=== PATIENT | female | born 2000 | race Caucasian/White ===

== ENCOUNTER 2024-01-04 16:39 | Inpatient (IN) | payer SELFPAY ==
[2024-01-04] MEDS ORDERED: Propofol 1,000 MG/100 ML VIAL IV ONE (16:50)
[2024-01-04] MEDS ORDERED: Fentanyl CADD 100 ML IV SCH ×2 (17:00→19:30)
[2024-01-04 17:02] LABS: Analyzer IN Cardio ER; Base Excess (BEa) -12.4 mEq/L (-2.0 to +3.0); CO2 Tension 36.5 mmHg (35.0-45.0); Calcium, Ionized (arterial) 1.03 mmol/L (1.12-1.30); Carboxyhemoglobin (COHb) 0.3 gm% (0.0-3.0); Hematocrit-ABG 36 % (36.0-47.0); Hemoglobin (Hb) 12.3 g/dL (12.0-16.0); pH, Arterial 7.216 (7.35-7.45)
[2024-01-04 17:07] LABS: Actual Bicarbonate (HCO3a) 14.5 mEq/L (22-28); Puncture Site Right Brachial art
[2024-01-04 17:08] LABS: ALV-art Gradient 34.875 mmHg (0-20)
[2024-01-04 17:11] LABS: #Basophils 0.12 10x3/uL (0.0-0.2); %Basophils 0.6 % (0.0-1.0); %Eosinophils 3.4 % (0.0-10.0); %Lymphocytes 44.3 % (21.0-51.0); %Monocytes 5.8 % (0.0-10.0); Hematocrit 33.4 % (36.0-47.0); Hemoglobin 11.3 g/dL (12.0-16.0); Mean Corpuscular HGB CONC 33.8 g/dL (32.0-36.0); Mean Corpuscular Volume 88.6 fL (78.0-98.0); Mean Platelet Volume 10.3 fL (7.4-10.4); Platelet Count 474 10x3/uL (130-400); RBC Distribution Width 12.3 % (11.5-14.5); Red Blood Cell (RBC) Count 3.77 mill/uL (4.20-5.40)
[2024-01-04 17:23] LABS: Acetaminophen Less than 10 mcg/mL (Less than 10); Alcohol Less than 10.0 mg/dL (Less than 10); Salicylate Less than 8.0 mg/dL (Less than 8.0)
[2024-01-04 17:26] LABS: Troponin I Less than 0.010 ng/mL (< 0.028)
[2024-01-04] MEDS ORDERED: Albuterol 2.5 MG (3 mL) NEB ONE (17:26)
[2024-01-04 17:27] LABS: ALT (SGPT) 64 U/L (8-55); AST (SGOT) 132 U/L (5-34); Albumin 2.6 g/dL (3.5-5.0); Alkaline Phosphatase 109 U/L (40-110); Anion Gap 18 mmol/L (10-20); BUN (Urea Nitrogen) 6 mg/dL (7.0-18.7); Bilirubin, Total 0.3 mg/dL (0.2-1.2); Calc. Creatinine Clearance 0 mL/min (70-130); Calcium 6.8 mg/dL (7.8-10.44); Carbon Dioxide 16 mmol/L (22-29); Chloride 110 mmol/L (98-107); Estimated GFR 103; Globulin 1.5 g/dL (2.4-3.5); Glucose 250 mg/dL (70-105); Potassium 3.4 mmol/L (3.5-5.1); Protein, Total 4.1 g/dL (6.0-8.3); Sodium 141 mmol/L (136-145)
[2024-01-04] MEDS ORDERED: Albuterol 2.5 MG (0.5 mL) NEB ONE (17:27)
[2024-01-04] MEDS ORDERED: levETIRAcetam 500 MG (5 mL) VIAL ONE ×2 (17:34→18:37)
[2024-01-04 17:35] LABS: Analyzer IN Cardio ER; Base Excess -9.9 mEq/L (-2.0 to +3.0); Calcium, Ionized (venous) 0.98 mmol/L (1.16-1.32); Chloride (VBG) 107 mmol/L (98-106); Hematocrit-VBG 41 % (36.0-47.0); Hemoglobin (Hb) 13.9 g/dL (11.7-15.5); Potassium (VBG) 3.42 mmol/L (3.70-5.30); Sodium 137 mmol/L (133-146); pH (venous) 7.273 (7.32-7.43)
[2024-01-04] MEDS ORDERED: Cefepime 2 GM VIAL ONE (17:35)
[2024-01-04] MEDS ORDERED: Lorazepam 2 MG/ML VIAL ONE (17:35)
[2024-01-04] MEDS ORDERED: methylPREDNISolone Sod Succ/PF 125 MG/2 ML VIAL ONE (17:35)
[2024-01-04] MEDS ORDERED: Azithromycin 500 MG VIAL ONE (17:35)
[2024-01-04] MEDS ORDERED: Sodium Chloride 0.9% 100 ML ONE (17:35)
[2024-01-04 17:48] LABS: Bilirubin Negative (Negative); Blood, Urine 1+ (Negative); CAUTI Indications for Culture Alt mental st,lethar; Clarity Clear (Clear); Glucose, Urine (Dipstick) 500 mg/dL (Negative); Ketone, Urine Negative (Negative); Leukocyte Negative Leu/uL (Negative); Nitrite Negative (Negative); Protein, Urine (Dipstick) 30 mg/dL (Neg-Trace); RBC/HPF 0-3 HPF (0-3); Specific Gravity, Urine 1.006 (1.002-1.036); Squamous Epithelial 0-3 HPF (0-3); Urobilinogen Normal mg/dL (Less than 2)
[2024-01-04 17:49] LABS: Bacteria/HPF 1+ HPF (None Seen)
[2024-01-04 17:50] LABS: Urine Culture Reflex No No
[2024-01-04 17:54] LABS: Amphetamine Not Detected (NotDetected); Barbiturates Screen Not Detected (NotDetected); Benzodiazepine Screen Not Detected (NotDetected); Cocaine Metabolite Screen Not Detected (NotDetected); Methadone Not Detected (NotDetected); Methamphetamine Not Detected (NotDetected); Opiate Screen Not Detected (NotDetected); Oxycodone Screen Not Detected (NotDetected); Phencyclidine (PCP) Not Detected (NotDetected); THC/Cannabinoid Screen Not Detected (NotDetected); Tricyclic Screen Not Detected (NotDetected)
[2024-01-04 17:57] LABS: BHCG - Serum Negative (NEGATIVE); Pregs Control Background? CLEAR/WHITE (CLR/WHITE); Pregs Control Bar Appear? YES (CONTROL BAR)
[2024-01-04] MEDS ORDERED: Hydrocortisone Sod Succ/PF 100 mg/2 ml Vial ONE (18:10)
[2024-01-04] MEDS ORDERED: CALCIUM GLUC 1 GM/NS 50 ML IV Bag ONE (18:10)
[2024-01-04] MEDS ORDERED: Acetaminophen 650 MG Suppository PR PRN (18:55)
[2024-01-04] MEDS ORDERED: Calcium Carbonate 500 MG ChewTAB PO PRN (19:01)
[2024-01-04] MEDS ORDERED: Bisacodyl 5 MG TAB PO PRN (19:01)
[2024-01-04] MEDS ORDERED: Ondansetron PF 4 MG/2 ML Vial IVP PRN (19:01)
[2024-01-04] MEDS ORDERED: Senokot S 8.6-50 MG TAB PO PRN (19:01)
[2024-01-04] MEDS ORDERED: Ventilator Sedation Protocol 1 EACH FS SCH (19:07)
[2024-01-04] MEDS ORDERED: Lorazepam 2 MG/ML VIAL SLOW IVP PRN (19:09)
[2024-01-04 19:10] LABS: Free T4 (Free Thyroxine) 0.97 ng/dL (0.70-1.48); Thyroid Stimulating Hormone 9.5489 uIU/mL (0.35-4.94)
[2024-01-04] MEDS ORDERED: Propofol BOLUS 1,000 MG/100 ML VIAL IV PRN (19:30)
[2024-01-04] MEDS ORDERED: Fentanyl BOLUS 250 ML IVPB PRN (19:30)
[2024-01-04] MEDS ORDERED: Morphine 2 MG/ML VIAL SLOW IVP PRN (19:30)
[2024-01-04] MEDS ORDERED: DISCONTINUE PREVIOUS NARCOTIC PAIN MEDICATIONS AND BENZODIAZEPINES FS SCH (19:30)
[2024-01-04] MEDS ORDERED: Ipratropium/Albuterol 3 ML NEB NEB PRN (20:47)
[2024-01-04] MEDS ORDERED: Albuterol 2.5 MG (3 mL) NEB NEB PRN (21:01)
[2024-01-04] MEDS: Lactated Ringer's 1,000 ML IV SCH ×3 (21:36→23:20)
[2024-01-04 21:38] VITALS: BMI 19.5
[2024-01-04] MEDS ORDERED: Lactated Ringer's 1,000 ML IV SCH (21:45)
[2024-01-04] MEDS: Famotidine/PF 20 mg/2ml Vial SLOW IVP SCH (21:54)
[2024-01-04] MEDS: Hydrocortisone Sod Succ/PF 100 mg/2 ml Vial IVP SCH (22:02)
[2024-01-04] MEDS: Ipratropium/Albuterol 3 ML NEB NEB SCH (22:19)
[2024-01-04] MEDS: Albumin 25% 25 GM (100 mL) BOT IVPB SCH (22:57)
[2024-01-04 22:58] LABS: ALT (SGPT) 92 U/L (8-55); AST (SGOT) 213 U/L (5-34); Alkaline Phosphatase 121 U/L (40-110); Anion Gap 17 mmol/L (10-20); BUN (Urea Nitrogen) 8 mg/dL (7.0-18.7); Bilirubin, Total 0.3 mg/dL (0.2-1.2); Calc. Creatinine Clearance 81 mL/min (70-130); Calcium 7.4 mg/dL (7.8-10.44); Carbon Dioxide 13 mmol/L (22-29); Chloride 113 mmol/L (98-107); Estimated GFR 111; Globulin 2.1 g/dL (2.4-3.5); Glucose 188 mg/dL (70-105); Potassium 4.5 mmol/L (3.5-5.1); Protein, Total 5.1 g/dL (6.0-8.3); Sodium 138 mmol/L (136-145)
[2024-01-04 23:06] LABS: Lactic Acid 7.45 mmol/L (0.5-2.2)
[2024-01-04] MEDS: Sodium Bicarb 50 MEQ/50 ML Abboject 8.4% SYRINGE IVP SCH (23:20)
[2024-01-04] MEDS: NOREPINEPHRINE 8 MG/250 ML-D5W 250 ML IVPB SCH (23:45)
[2024-01-05 00:06] LABS: ALT (SGPT) 63 U/L (8-55); AST (SGOT) 142 U/L (5-34); Albumin 3.1 g/dL (3.5-5.0); Alkaline Phosphatase 75 U/L (40-110); Anion Gap 20 mmol/L (10-20); BUN (Urea Nitrogen) 8 mg/dL (7.0-18.7); Bilirubin, Total 0.4 mg/dL (0.2-1.2); Calc. Creatinine Clearance 85 mL/min (70-130); Calcium 7.1 mg/dL (7.8-10.44); Carbon Dioxide 21 mmol/L (22-29); Chloride 107 mmol/L (98-107); Estimated GFR 117; Globulin 1.1 g/dL (2.4-3.5); Glucose 211 mg/dL (70-105); Potassium 3.4 mmol/L (3.5-5.1); Protein, Total 4.2 g/dL (6.0-8.3); Sodium 145 mmol/L (136-145)
[2024-01-05] MEDS ORDERED: Glucagon 1 MG/ML KIT IM PRN (00:14)
[2024-01-05] MEDS ORDERED: Dextrose 5% in Water 1,000 ML IV PRN (00:14)
[2024-01-05] MEDS ORDERED: Dextrose 50% Abboject 50 ML SYRINGE SLOW IVP PRN (00:14)
[2024-01-05] MEDS: Albumin 25% 25 GM (100 mL) BOT IVPB SCH (00:16)
[2024-01-05] MEDS: Calcium Chloride 13.6 MEQ in Sodium Chloride 0.9% 100 ML IVPB SCH (00:16)
[2024-01-05] MEDS: Propofol 1,000 MG/100 ML VIAL IV PRN (01:01)
[2024-01-05] MEDS: Potassium Chloride 20 MEQ in Premix 1 BAG IVPB SCH (01:01)
[2024-01-05] MEDS: Lorazepam 2 MG/ML VIAL SLOW IVP PRN (01:10)
[2024-01-05] MEDS: Insulin Lispro 100 UNIT/ML 10 ML VIAL SC PRN (03:48)
[2024-01-05 04:15] LABS: #Basophils 0.03 10x3/uL (0.0-0.2); #Eosinphils Less than 0.03 10x3/uL (0.0-0.7); %Basophils 0.2 % (0.0-1.0); %Eosinophils 0.1 % (0.0-10.0); %Lymphocytes 5.7 % (21.0-51.0); %Monocytes 2.2 % (0.0-10.0); %Neutrophils 90.7 % (42.0-75.0); Hematocrit 35.8 % (36.0-47.0); Hemoglobin 12.2 g/dL (12.0-16.0); Mean Corpuscular HGB CONC 34.1 g/dL (32.0-36.0); Mean Corpuscular Hemoglobin 29.6 pg (27.0-31.0); Mean Corpuscular Volume 86.9 fL (78.0-98.0); Mean Platelet Volume 10.6 fL (7.4-10.4); Platelet Count 478 10x3/uL (130-400); RBC Distribution Width 12.7 % (11.5-14.5); Red Blood Cell (RBC) Count 4.12 mill/uL (4.20-5.40)
[2024-01-05] MEDS: Levothyroxine Sodium 25 MCG TAB PO SCH (05:53)
[2024-01-05 06:15] LABS: Lactic Acid 12.85 mmol/L (0.5-2.2)
[2024-01-05 06:17] LABS: ALT (SGPT) 76 U/L (8-55); AST (SGOT) 153 U/L (5-34); Albumin 4.6 g/dL (3.5-5.0); Alkaline Phosphatase 90 U/L (40-110); Anion Gap 22 mmol/L (10-20); BUN (Urea Nitrogen) 7 mg/dL (7.0-18.7); Bilirubin, Total 0.9 mg/dL (0.2-1.2); Calc. Creatinine Clearance 72 mL/min (70-130); Calcium 9.3 mg/dL (7.8-10.44); Carbon Dioxide 14 mmol/L (22-29); Chloride 109 mmol/L (98-107); Estimated GFR 96; Globulin 1.5 g/dL (2.4-3.5); Glucose 212 mg/dL (70-105); Potassium 4.4 mmol/L (3.5-5.1); Protein, Total 6.1 g/dL (6.0-8.3); Sodium 141 mmol/L (136-145)
[2024-01-05 06:36] LABS: Chloride 109 mmol/L (98-107); Potassium 4.4 mmol/L (3.5-5.1); Sodium 140 mmol/L (136-145)
[2024-01-05 06:37] LABS: Albumin 4.7 g/dL (3.5-5.0); Calcium 9.4 mg/dL (7.8-10.44)
[2024-01-05 06:38] LABS: Globulin 1.6 g/dL (2.4-3.5); Glucose 212 mg/dL (70-105); Protein, Total 6.3 g/dL (6.0-8.3)
[2024-01-05 06:39] LABS: Anion Gap 23 mmol/L (10-20); Carbon Dioxide 12 mmol/L (22-29)
[2024-01-05 06:41] LABS: Alkaline Phosphatase 92 U/L (40-110)
[2024-01-05 06:42] LABS: BUN (Urea Nitrogen) 7 mg/dL (7.0-18.7); Calc. Creatinine Clearance 74 mL/min (70-130); Estimated GFR 99
[2024-01-05 06:43] LABS: ALT (SGPT) 77 U/L (8-55); AST (SGOT) 158 U/L (5-34); Magnesium 1.9 mg/dL (1.6-2.6)
[2024-01-05] MEDS: Sodium Bicarb 50 MEQ/50 ML Abboject 8.4% SYRINGE IVP SCH (06:51)
[2024-01-05 07:54] LABS: Actual Bicarbonate (HCO3a) 18.6 mEq/L (22-28); Base Excess (BEa) -2.5 mEq/L (-2.0 to +3.0); Calcium, Ionized (arterial) 1.07 mmol/L (1.12-1.30); Carboxyhemoglobin (COHb) 0.3 gm% (0.0-3.0); Hematocrit-ABG 36 % (36.0-47.0); Hemoglobin (Hb) 12.1 g/dL (12.0-16.0); O2 Tension (PaO2), arterial 182.5 mmHg (80.0-100.0); Potassium - ABG Lab 4.17 mmol/L (3.70-5.30); pH, Arterial 7.527 (7.35-7.45)
[2024-01-05 07:55] LABS: ALV-art Gradient 74.075 mmHg (0-20); CO2 Tension 22.9 mmHg (35.0-45.0); Puncture Site Right Radial artery
[2024-01-05] MEDS: FLU (Fluarix Triv) TS24-25(6MOS UP)/PF 45 MCG/0.5 ML Syringe IM ONE (08:37)
[2024-01-05] MEDS: Enoxaparin 40 MG (0.4 mL) SYRINGE SC SCH (08:37)
[2024-01-05 08:48] LABS: Lactic Acid 10.18 mmol/L (0.5-2.2)
[2024-01-05] MEDS ORDERED: levETIRAcetam 500 MG (5 mL) VIAL SLOW IVP SCH (09:00)
[2024-01-05] MEDS: ADMIXTURE FEE IV SCH (10:54)
[2024-01-05] MEDS: IN SODIUM CHLORIDE IV SCH (10:54)
[2024-01-05] MEDS ORDERED: IN SODIUM CHLORIDE IV SCH (11:00)
[2024-01-05] MEDS ORDERED: ADMIXTURE FEE IV SCH (11:00)
[2024-01-05] MEDS: SODIUM CHLORIDE 3% FS SCH (11:19)
[2024-01-05] MEDS: ADMIXTURE FEE FS SCH (11:19)
[2024-01-05] MEDS: Ipratropium/Albuterol 3 ML NEB NEB SCH (14:11)
[2024-01-05] MEDS: Sodium Chloride 0.9% 1,000 ML IV SCH (14:22)
[2024-01-05] MEDS: IN SODIUM CHLORIDE IVPB SCH (16:34)
[2024-01-05] MEDS: ADMIXTURE FEE IVPB SCH (16:34)
[2024-01-05 16:41] LABS: Anion Gap 15 mmol/L (10-20); BUN (Urea Nitrogen) 6 mg/dL (7.0-18.7); Calc. Creatinine Clearance 89 mL/min (70-130); Calcium 8.9 mg/dL (7.8-10.44); Carbon Dioxide 23 mmol/L (22-29); Chloride 110 mmol/L (98-107); Estimated GFR 123; Glucose 130 mg/dL (70-105); Potassium 3.8 mmol/L (3.5-5.1); Sodium 144 mmol/L (136-145)
[2024-01-05] MEDS: Budesonide 0.5 MG/2 ML NEB INH SCH (18:12)
[2024-01-05] MEDS: levETIRAcetam 500 MG (5 mL) VIAL SLOW IVP SCH (21:14)
[2024-01-06 02:08] VITALS: BP 115/70
[2024-01-06] MEDS: Piperacillin/Tazobactam 3.375 GM in Sodium Chloride 0.9% 100 ML IVPB SCH ×2 (04:06→09:24)
[2024-01-06] MEDS: Hydrocortisone Sod Succ/PF 100 mg/2 ml Vial IVP SCH ×2 (06:28→13:09)
[2024-01-06] MEDS: Ipratropium/Albuterol 3 ML NEB NEB SCH (06:46)
[2024-01-06 06:54] LABS: Actual Bicarbonate (HCO3a) 18.7 mEq/L (22-28); Base Excess (BEa) -3.3 mEq/L (-2.0 to +3.0); CO2 Tension 25.2 mmHg (35.0-45.0); Calcium, Ionized (arterial) 1.17 mmol/L (1.12-1.30); Carboxyhemoglobin (COHb) 0.2 gm% (0.0-3.0); Hematocrit-ABG 34 % (36.0-47.0); Hemoglobin (Hb) 11.6 g/dL (12.0-16.0); O2 Tension (PaO2), arterial 155.5 mmHg (80.0-100.0); pH, Arterial 7.489 (7.35-7.45)
[2024-01-06 06:54] LABS: #Basophils 0.03 10x3/uL (0.0-0.2); #Eosinphils Less than 0.03 10x3/uL (0.0-0.7); %Basophils 0.1 % (0.0-1.0); %Lymphocytes 6.3 % (21.0-51.0); %Neutrophils 86.2 % (42.0-75.0); Hematocrit 32.1 % (36.0-47.0); Mean Corpuscular HGB CONC 34.3 g/dL (32.0-36.0); Mean Corpuscular Hemoglobin 29.7 pg (27.0-31.0); Mean Corpuscular Volume 86.8 fL (78.0-98.0); Mean Platelet Volume 10.4 fL (7.4-10.4); Platelet Count 298 10x3/uL (130-400); RBC Distribution Width 13.7 % (11.5-14.5)
[2024-01-06 06:57] LABS: Puncture Site Arterial Line
[2024-01-06 07:05] LABS: INR-International Normal Ratio 1.2; PTT 26.8 sec (22.9-36.1)
[2024-01-06 07:10] LABS: Lactic Acid 1.65 mmol/L (0.5-2.2)
[2024-01-06 07:16] LABS: ALT (SGPT) 32 U/L (8-55); AST (SGOT) 65 U/L (5-34); Albumin 4.2 g/dL (3.5-5.0); Alkaline Phosphatase 50 U/L (40-110); Anion Gap 12 mmol/L (10-20); BUN (Urea Nitrogen) 7 mg/dL (7.0-18.7); Bilirubin, Direct 0.2 mg/dL (0.1-0.3); Bilirubin, Total 0.5 mg/dL (0.2-1.2); Calc. Creatinine Clearance 87 mL/min (70-130); Calcium 8.8 mg/dL (7.8-10.44); Carbon Dioxide 20 mmol/L (22-29); Chloride 120 mmol/L (98-107); Estimated GFR 119; Glucose 148 mg/dL (70-105); Magnesium 2.1 mg/dL (1.6-2.6); Phosphorus 2.6 mg/dL (2.3-4.7); Potassium 3.4 mmol/L (3.5-5.1); Protein, Total 5.2 g/dL (6.0-8.3); Sodium 149 mmol/L (136-145)
[2024-01-06 08:49] LABS: Bilirubin Negative (Negative); Blood, Urine 1+ (Negative); Clarity Clear (Clear); Glucose, Urine (Dipstick) Normal (Negative); Ketone, Urine 20 mg/dL (Negative); Leukocyte Negative Leu/uL (Negative); Nitrite Negative (Negative); Protein, Urine (Dipstick) Negative (Neg-Trace); Specific Gravity, Urine 1.016 (1.002-1.036); Urobilinogen Normal mg/dL (Less than 2); pH, Urine 5.5 (5.0-9.0)
[2024-01-06] MEDS: Furosemide 20 MG (2 mL) VIAL SLOW IVP SCH (09:24)
[2024-01-06 09:46] VITALS: BMI 19.8
[2024-01-06 11:37] LABS: Actual Bicarbonate (HCO3a) 21.6 mEq/L (22-28); Base Excess (BEa) -0.1 mEq/L (-2.0 to +3.0); CO2 Tension 27.1 mmHg (35.0-45.0); Calcium, Ionized (arterial) 1.13 mmol/L (1.12-1.30); Carboxyhemoglobin (COHb) 0.1 gm% (0.0-3.0); Hematocrit-ABG 37 % (36.0-47.0); Hemoglobin (Hb) 12.6 g/dL (12.0-16.0); O2 Tension (PaO2), arterial 571.3 mmHg (80.0-100.0); pH, Arterial 7.519 (7.35-7.45)
[2024-01-06 11:43] LABS: Puncture Site Arterial Line
[2024-01-06 11:44] LABS: ALV-art Gradient 107.825 mmHg (0-20)
[2024-01-06] MEDS: Albumin 25% 25 GM (100 mL) BOT IVPB SCH (11:47)
[2024-01-06 12:12] VITALS: TEMP 97.6
[2024-01-06 12:48] LABS: Actual Bicarbonate (HCO3a) 24.5 mEq/L (22-28); Base Excess (BEa) -0.1 mEq/L (-2.0 to +3.0); CO2 Tension 39.8 mmHg (35.0-45.0); Calcium, Ionized (arterial) 1.14 mmol/L (1.12-1.30); Carboxyhemoglobin (COHb) 0.3 gm% (0.0-3.0); Hematocrit-ABG 34 % (36.0-47.0); Hemoglobin (Hb) 11.4 g/dL (12.0-16.0); Potassium - ABG Lab 2.94 mmol/L (3.70-5.30); Puncture Site Arterial Line; pH, Arterial 7.408 (7.35-7.45)
[2024-01-06] MEDS ORDERED: Electrolyte Replacement Protocol FS PRN (13:00)
[2024-01-06 13:01] LABS: Actual Bicarbonate (HCO3a) 27.3 mEq/L (22-28); Base Excess (BEa) -1.5 mEq/L (-2.0 to +3.0); Calcium, Ionized (arterial) 1.21 mmol/L (1.12-1.30); Carboxyhemoglobin (COHb) 0.3 gm% (0.0-3.0); Hematocrit-ABG 34 % (36.0-47.0); Hemoglobin (Hb) 11.4 g/dL (12.0-16.0); O2 Tension (PaO2), arterial 76.8 mmHg (80.0-100.0); Potassium - ABG Lab 2.73 mmol/L (3.70-5.30); pH, Arterial 7.219 (7.35-7.45)
[2024-01-06 13:04] LABS: CO2 Tension 68.4 mmHg (35.0-45.0); Puncture Site Arterial Line
[2024-01-06] MEDS: Potassium Chloride 20 MEQ in Premix 1 BAG IVPB SCH (13:08)
[2024-01-06] MEDS ORDERED: Albumin 25% 100 ML ONE (15:19)
[2024-01-06 20:45] LABS: Actual Bicarbonate (HCO3a) 24.4 mEq/L (22-28); Base Excess (BEa) -0.1 mEq/L (-2.0 to +3.0); CO2 Tension 39.1 mmHg (35.0-45.0); Calcium, Ionized (arterial) 1.18 mmol/L (1.12-1.30); Carboxyhemoglobin (COHb) 0.2 gm% (0.0-3.0); Hematocrit-ABG 31 % (36.0-47.0); Hemoglobin (Hb) 10.5 g/dL (12.0-16.0); O2 Tension (PaO2), arterial 369.3 mmHg (80.0-100.0); pH, Arterial 7.413 (7.35-7.45)
[2024-01-06 20:51] LABS: ALV-art Gradient 294.825 mmHg (0-20)
[2024-01-06 23:43] LABS: Potassium - ABG Lab 2.28 mmol/L (3.70-5.30)
== END 2024-01-06 13:30 | disposition expired | DRG 208 ==
LOC: EDBD 16:39 → ERS 16:39 → SUATTDRO 16:39 → CCU 18:05
PROVIDERS: ADMIT Internal Medicine; ATTEND Internal Medicine
PROC: 0D9670Z Drainage of Stomach with Drainage Device, Via Natural or Artificial Opening (ICD-10-PCS; principal; 2024-01-04)
PROC: 0BH17EZ Insertion of Endotracheal Airway into Trachea, Via Natural or Artificial Opening (ICD-10-PCS; 2024-01-04)
PROC: 5A1945Z Respiratory Ventilation, 24-96 Consecutive Hours (ICD-10-PCS; 2024-01-04)
PROC: 4A00X4Z Measurement of Central Nervous Electrical Activity, External Approach (ICD-10-PCS; 2024-01-04)
PROC: 30233J1 Transfusion of Nonautologous Serum Albumin into Peripheral Vein, Percutaneous Approach (ICD-10-PCS; 2024-01-04)
PROC: 5A12012 Performance of Cardiac Output, Single, Manual (ICD-10-PCS; 2024-01-04)
PROC: 3E043XZ Introduction of Vasopressor into Central Vein, Percutaneous Approach (ICD-10-PCS; 2024-01-04)
PROC: 4A00X4Z Measurement of Central Nervous Electrical Activity, External Approach (ICD-10-PCS; 2024-01-05)
PROC: 03HY32Z Insertion of Monitoring Device into Upper Artery, Percutaneous Approach (ICD-10-PCS; 2024-01-06)
PROC: 02HV33Z Insertion of Infusion Device into Superior Vena Cava, Percutaneous Approach (ICD-10-PCS; 2024-01-06)
PROC: B5181ZA Fluoroscopy of Superior Vena Cava using Low Osmolar Contrast, Guidance (ICD-10-PCS; 2024-01-06)
PROC: B548ZZA Ultrasonography of Superior Vena Cava, Guidance (ICD-10-PCS; 2024-01-06)
PROC: 4A133R1 Monitoring of Arterial Saturation, Peripheral, Percutaneous Approach (ICD-10-PCS; 2024-01-06)
PROC: 4A133B1 Monitoring of Arterial Pressure, Peripheral, Percutaneous Approach (ICD-10-PCS; 2024-01-06)
PROC: 4A133J1 Monitoring of Arterial Pulse, Peripheral, Percutaneous Approach (ICD-10-PCS; 2024-01-06)
PROC: 30243J1 Transfusion of Nonautologous Serum Albumin into Central Vein, Percutaneous Approach (ICD-10-PCS; 2024-01-06)
PROC: 3E04329 Introduction of Other Anti-infective into Central Vein, Percutaneous Approach (ICD-10-PCS; 2024-01-06)
DX: J45.901 Unspecified asthma with (acute) exacerbation (principal); G93.6 Cerebral edema; J96.01 Acute respiratory failure with hypoxia; G93.1 Anoxic brain damage, not elsewhere classified; E27.1 Primary adrenocortical insufficiency; E87.0 Hyperosmolality and hypernatremia; E87.4 Mixed disorder of acid-base balance; Z66 Do not resuscitate; Z51.5 Encounter for palliative care; E03.9 Hypothyroidism, unspecified; D72.829 Elevated white blood cell count, unspecified; I46.9 Cardiac arrest, cause unspecified; R56.9 Unspecified convulsions; I45.10 Unspecified right bundle-branch block; E87.6 Hypokalemia; R79.89 Other specified abnormal findings of blood chemistry; R57.8 Other shock; Z98.890 Other specified postprocedural states; Z79.899 Other long term (current) drug therapy
CPT/HCPCS: 36415; 36416; 36600; 51702; 70450; 71045; 80053; 80306; 80307; 81001; 81003; 82248; 82805; 83605; 83735; 83930; 84100; 84146; 84439; 84443; 84484; 84703; 85025; 85379; 85610; 85730; 87040; 93005; 93010; 93306; 94002; 94003; 94640; 96365; 96366; 96367; 96368; 96375; J0456; J0613; J0692; J1650; J1720; J1815; J1940; J1953; J2060; J2543; J2704; J2919; J3010; J3480; J3490; J7030; J7120; J7131; J7611; J7620; J7626; P9047

== ENCOUNTER 2024-01-06 00:15 | Inpatient (IN) | payer OTHER ==
[2024-01-06] MEDS ORDERED: Iopamidol-370 76% 500 ML MDV (1 ML CHARGE) ONE (09:31)
[2024-01-06] MEDS: Phenylephrine 40 MG/NS 250 ML 40 MG in Premix 1 BAG IVPB SCH (16:15)
[2024-01-06 16:37] LABS: Actual Bicarbonate (HCO3a) 21.7 mEq/L (22-28); CO2 Tension 26.4 mmHg (35.0-45.0); Calcium, Ionized (arterial) 1.14 mmol/L (1.12-1.30); Carboxyhemoglobin (COHb) 0.3 gm% (0.0-3.0); Hematocrit-ABG 31 % (36.0-47.0); Hemoglobin (Hb) 10.6 g/dL (12.0-16.0); O2 Tension (PaO2), arterial 136.4 mmHg (80.0-100.0); Potassium - ABG Lab 3.26 mmol/L (3.70-5.30); pH, Arterial 7.533 (7.35-7.45)
[2024-01-06 16:40] LABS: Puncture Site Arterial Line
[2024-01-06] MEDS: Piperacillin/Tazobactam 4.5 GM in Sodium Chloride 0.9% 100 ML IVPB SCH (17:12)
[2024-01-06] MEDS: Furosemide 20 MG TAB PO SCH (17:13)
[2024-01-06] MEDS: Albumin 25% 25 GM (100 mL) BOT IVPB SCH (17:13)
[2024-01-06] MEDS: Hydrocortisone Sod Succ/PF 500 mg/4 ml Vial SLOW IVP SCH (17:13)
[2024-01-06] MEDS: Metolazone 5 MG TAB PO SCH (17:13)
[2024-01-06] MEDS: MINERAL OIL/WHITE PETROLATUM 3.5 GM TUBE EA EYE PRN (17:13)
[2024-01-06 18:32] LABS: #Basophils Less than 0.03 10x3/uL (0.0-0.2); #Eosinophils Less than 0.03 10x3/uL (0.0-0.7); %Basophils 0.1 % (0.0-1.0); %Lymphocytes 6.4 % (21.0-51.0); %Monocytes 4.9 % (0.0-10.0); %Neutrophils 87.3 % (42.0-75.0); Hematocrit 28.3 % (36.0-47.0); Hemoglobin 9.6 g/dL (12.0-16.0); Mean Corpuscular HGB CONC 33.9 g/dL (32.0-36.0); Mean Corpuscular Hemoglobin 29.8 pg (27.0-31.0); Mean Corpuscular Volume 87.9 fL (78.0-98.0); Mean Platelet Volume 10.4 fL (7.4-10.4); Platelet Count 199 10x3/uL (130-400); RBC Distribution Width 13.7 % (11.5-14.5); Red Blood Cell (RBC) Count 3.22 mill/uL (4.20-5.40)
[2024-01-06 18:44] LABS: INR-International Normal Ratio 1.3; PTT 32.4 sec (22.9-36.1); Prothrombin Time 16.4 sec (12.0-14.7)
[2024-01-06 18:52] LABS: Hemoglobin A1c 4.7 % (4.0-6.0)
[2024-01-06 19:02] LABS: ALT (SGPT) 24 U/L (8-55); AST (SGOT) 61 U/L (5-34); Albumin 5.4 g/dL (3.5-5.0); Alkaline Phosphatase 42 U/L (40-110); Anion Gap 14 mmol/L (10-20); BUN (Urea Nitrogen) 8 mg/dL (7.0-18.7); Bilirubin, Direct 0.2 mg/dL (0.1-0.3); Bilirubin, Total 0.5 mg/dL (0.2-1.2); Calc. Creatinine Clearance 0 mL/min (70-130); Calcium 9.4 mg/dL (7.8-10.44); Carbon Dioxide 23 mmol/L (22-29); Chloride 115 mmol/L (98-107); Estimated GFR 113; Globulin 1.1 g/dL (2.4-3.5); Glucose 133 mg/dL (70-105); Magnesium 2.4 mg/dL (1.6-2.6); Phosphorus 1.8 mg/dL (2.3-4.7); Potassium 2.6 mmol/L (3.5-5.1); Protein, Total 6.5 g/dL (6.0-8.3); Sodium 149 mmol/L (136-145)
[2024-01-06] MEDS: Ipratropium/Albuterol 3 ML NEB NEB SCH (19:08)
[2024-01-06] MEDS ORDERED: Electrolyte Replacement Protocol FS PRN (20:45)
[2024-01-06 20:49] LABS: Bilirubin Negative (Negative); Blood, Urine Trace (Negative); Clarity Clear (Clear); Glucose, Urine (Dipstick) Normal (Negative); Ketone, Urine Negative (Negative); Leukocyte Negative Leu/uL (Negative); Nitrite Negative (Negative); Protein, Urine (Dipstick) Negative (Neg-Trace); Specific Gravity, Urine 1.022 (1.002-1.036); Urobilinogen Normal mg/dL (Less than 2)
[2024-01-06] MEDS: Piperacillin/Tazobactam 3.375 GM in Sodium Chloride 0.9% 100 ML IVPB SCH (21:16)
[2024-01-06] MEDS: Potassium Phosphate 15 MMOL in Sodium Chloride 0.9% 100 ML IVPB SCH (21:17)
[2024-01-06] MEDS: Potassium Chloride 40 MEQ in Premix 1 BAG IVPB SCH (21:18)
[2024-01-06] MEDS: Hydrocortisone Sod Succ/PF 100 mg/2 ml Vial IVP SCH (23:37)
[2024-01-06] MEDS: Lorazepam 2 MG/ML VIAL SLOW IVP SCH (23:38)
[2024-01-07 06:25] LABS: #Basophils Less than 0.03 10x3/uL (0.0-0.2); #Eosinophils Less than 0.03 10x3/uL (0.0-0.7); %Basophils 0.1 % (0.0-1.0); %Lymphocytes 3.9 % (21.0-51.0); %Monocytes 5.3 % (0.0-10.0); %Neutrophils 89.3 % (42.0-75.0); Hematocrit 29.5 % (36.0-47.0); Hemoglobin 9.8 g/dL (12.0-16.0); Mean Corpuscular HGB CONC 33.2 g/dL (32.0-36.0); Mean Corpuscular Volume 87.3 fL (78.0-98.0); Mean Platelet Volume 10.7 fL (7.4-10.4); Platelet Count 204 10x3/uL (130-400); RBC Distribution Width 14.2 % (11.5-14.5); Red Blood Cell (RBC) Count 3.38 mill/uL (4.20-5.40)
[2024-01-07 06:44] LABS: Lactic Acid 1.11 mmol/L (0.5-2.2)
[2024-01-07 06:48] LABS: INR-International Normal Ratio 1.2; PTT 29.1 sec (22.9-36.1); Prothrombin Time 15.5 sec (12.0-14.7)
[2024-01-07 06:54] VITALS: BMI 19.8
[2024-01-07 06:54] LABS: ALT (SGPT) 24 U/L (8-55); AST (SGOT) 62 U/L (5-34); Albumin 5.2 g/dL (3.5-5.0); Alkaline Phosphatase 46 U/L (40-110); Anion Gap 12 mmol/L (10-20); BUN (Urea Nitrogen) 8 mg/dL (7.0-18.7); Bilirubin, Direct 0.2 mg/dL (0.1-0.3); Bilirubin, Total 0.5 mg/dL (0.2-1.2); Calc. Creatinine Clearance 80 mL/min (70-130); Calcium 9.9 mg/dL (7.8-10.44); Carbon Dioxide 28 mmol/L (22-29); Chloride 118 mmol/L (98-107); Estimated GFR 108; Globulin 1.3 g/dL (2.4-3.5); Glucose 153 mg/dL (70-105); Magnesium 2.7 mg/dL (1.6-2.6); Phosphorus 2.6 mg/dL (2.3-4.7); Protein, Total 6.5 g/dL (6.0-8.3); Sodium 155 mmol/L (136-145)
[2024-01-07 08:04] LABS: Actual Bicarbonate (HCO3a) 25.4 mEq/L (22-28); Base Excess (BEa) 1.7 mEq/L (-2.0 to +3.0); CO2 Tension 36.6 mmHg (35.0-45.0); Calcium, Ionized (arterial) 1.19 mmol/L (1.12-1.30); Carboxyhemoglobin (COHb) 0.1 gm% (0.0-3.0); Hematocrit-ABG 32 % (36.0-47.0); Hemoglobin (Hb) 10.8 g/dL (12.0-16.0); O2 Tension (PaO2), arterial 91.7 mmHg (80.0-100.0); Potassium - ABG Lab 3.07 mmol/L (3.70-5.30); pH, Arterial 7.459 (7.35-7.45)
[2024-01-07 08:07] LABS: Puncture Site Arterial Line
[2024-01-07 08:23] LABS: Bilirubin Negative (Negative); Blood, Urine 2+ (Negative); Clarity Clear (Clear); Glucose, Urine (Dipstick) Normal (Negative); Ketone, Urine Negative (Negative); Leukocyte Negative Leu/uL (Negative); Nitrite Negative (Negative); Protein, Urine (Dipstick) 10 mg/dL (Neg-Trace); Specific Gravity, Urine 1.019 (1.002-1.036); Urobilinogen Normal mg/dL (Less than 2); pH, Urine 5.5 (5.0-9.0)
[2024-01-07] MEDS: Albumin 25% 100 ML ONE (11:31)
[2024-01-07] MEDS: Sodium Chloride 0.45% 1,000 ML IV SCH (11:53)
[2024-01-07 12:02] LABS: Actual Bicarbonate (HCO3a) 27.9 mEq/L (22-28); CO2 Tension 39.5 mmHg (35.0-45.0); Calcium, Ionized (arterial) 1.17 mmol/L (1.12-1.30); Carboxyhemoglobin (COHb) 0.3 gm% (0.0-3.0); Hematocrit-ABG 31 % (36.0-47.0); Hemoglobin (Hb) 10.6 g/dL (12.0-16.0); O2 Tension (PaO2), arterial 381.1 mmHg (80.0-100.0); Potassium - ABG Lab 3.11 mmol/L (3.70-5.30); pH, Arterial 7.467 (7.35-7.45)
[2024-01-07 12:04] LABS: Puncture Site Arterial Line
[2024-01-07 12:05] LABS: ALV-art Gradient 282.525 mmHg (0-20)
[2024-01-07 12:17] LABS: #Basophils Less than 0.03 10x3/uL (0.0-0.2); #Eosinophils Less than 0.03 10x3/uL (0.0-0.7); %Basophils 0.1 % (0.0-1.0); %Lymphocytes 4.1 % (21.0-51.0); %Monocytes 7.2 % (0.0-10.0); %Neutrophils 87.1 % (42.0-75.0); Hematocrit 29.5 % (36.0-47.0); Hemoglobin 9.8 g/dL (12.0-16.0); Mean Corpuscular HGB CONC 33.2 g/dL (32.0-36.0); Mean Corpuscular Volume 90.2 fL (78.0-98.0); Mean Platelet Volume 10.4 fL (7.4-10.4); Platelet Count 187 10x3/uL (130-400); RBC Distribution Width 14.4 % (11.5-14.5); Red Blood Cell (RBC) Count 3.27 mill/uL (4.20-5.40)
[2024-01-07 12:48] LABS: ALT (SGPT) 23 U/L (8-55); AST (SGOT) 66 U/L (5-34); Albumin 5.7 g/dL (3.5-5.0); Alkaline Phosphatase 47 U/L (40-110); Anion Gap 16 mmol/L (10-20); BUN (Urea Nitrogen) 9 mg/dL (7.0-18.7); Bilirubin, Total 0.4 mg/dL (0.2-1.2); Calc. Creatinine Clearance 73 mL/min (70-130); Carbon Dioxide 28 mmol/L (22-29); Chloride 117 mmol/L (98-107); Estimated GFR 96; Globulin 1.4 g/dL (2.4-3.5); Glucose 124 mg/dL (70-105); Lipase 13 U/L (8-78); Protein, Total 7.1 g/dL (6.0-8.3); Sodium 158 mmol/L (136-145)
[2024-01-07] MEDS: Potassium Phosphate 30 MMOL in Sodium Chloride 0.9% 250 ML 250 ML IVPB SCH (14:25)
[2024-01-07 15:08] LABS: Actual Bicarbonate (HCO3a) 27.3 mEq/L (22-28); Base Excess (BEa) 3.9 mEq/L (-2.0 to +3.0); CO2 Tension 36.7 mmHg (35.0-45.0); Calcium, Ionized (arterial) 1.16 mmol/L (1.12-1.30); Carboxyhemoglobin (COHb) 0.3 gm% (0.0-3.0); Hematocrit-ABG 30 % (36.0-47.0); Hemoglobin (Hb) 10.1 g/dL (12.0-16.0); O2 Tension (PaO2), arterial 444.1 mmHg (80.0-100.0); Potassium - ABG Lab 3.23 mmol/L (3.70-5.30)
[2024-01-07 15:10] LABS: ALV-art Gradient 223.025 mmHg (0-20); Puncture Site Arterial Line
[2024-01-07 18:08] LABS: Actual Bicarbonate (HCO3a) 28.2 mEq/L (22-28); Base Excess (BEa) 4.8 mEq/L (-2.0 to +3.0); CO2 Tension 37.4 mmHg (35.0-45.0); Calcium, Ionized (arterial) 1.13 mmol/L (1.12-1.30); Carboxyhemoglobin (COHb) 0.3 gm% (0.0-3.0); Hematocrit-ABG 29 % (36.0-47.0); Potassium - ABG Lab 3.37 mmol/L (3.70-5.30); pH, Arterial 7.496 (7.35-7.45)
[2024-01-07 18:10] LABS: Puncture Site A LINE
[2024-01-07 18:22] LABS: #Basophils Less than 0.03 10x3/uL (0.0-0.2); #Eosinophils Less than 0.03 10x3/uL (0.0-0.7); %Basophils 0.1 % (0.0-1.0); %Lymphocytes 11.3 % (21.0-51.0); %Monocytes 8.6 % (0.0-10.0); Hematocrit 28.2 % (36.0-47.0); Hemoglobin 9.2 g/dL (12.0-16.0); Mean Corpuscular HGB CONC 32.6 g/dL (32.0-36.0); Mean Corpuscular Hemoglobin 29.3 pg (27.0-31.0); Mean Corpuscular Volume 89.8 fL (78.0-98.0); Mean Platelet Volume 10.6 fL (7.4-10.4); Platelet Count 183 10x3/uL (130-400); RBC Distribution Width 14.5 % (11.5-14.5); Red Blood Cell (RBC) Count 3.14 mill/uL (4.20-5.40)
[2024-01-07 18:35] LABS: INR-International Normal Ratio 1.3; Prothrombin Time 15.7 sec (12.0-14.7)
[2024-01-07 18:36] LABS: PTT 29.9 sec (22.9-36.1)
[2024-01-07 18:48] LABS: ALT (SGPT) 21 U/L (8-55); AST (SGOT) 63 U/L (5-34); Albumin 5.2 g/dL (3.5-5.0); Alkaline Phosphatase 43 U/L (40-110); Anion Gap 16 mmol/L (10-20); BUN (Urea Nitrogen) 10 mg/dL (7.0-18.7); Bilirubin, Direct 0.2 mg/dL (0.1-0.3); Bilirubin, Total 0.5 mg/dL (0.2-1.2); Calc. Creatinine Clearance 83 mL/min (70-130); Calcium 9.8 mg/dL (7.8-10.44); Carbon Dioxide 28 mmol/L (22-29); Chloride 120 mmol/L (98-107); Estimated GFR 113; Globulin 1.5 g/dL (2.4-3.5); Glucose 108 mg/dL (70-105); Magnesium 2.8 mg/dL (1.6-2.6); Phosphorus 5.7 mg/dL (2.3-4.7); Potassium 3.3 mmol/L (3.5-5.1); Protein, Total 6.7 g/dL (6.0-8.3); Sodium 161 mmol/L (136-145)
[2024-01-07 19:28] LABS: Lactic Acid 0.86 mmol/L (0.5-2.2)
[2024-01-07 19:45] LABS: D-Dimer Test 1.18 mcg/mL (0.27-0.43)
[2024-01-07] MEDS: Albumin 25% 25 GM (100 mL) BOT IVPB SCH (21:06)
[2024-01-07 21:43] LABS: Bilirubin Negative (Negative); Blood, Urine 2+ (Negative); Clarity Clear (Clear); Glucose, Urine (Dipstick) Normal (Negative); Ketone, Urine 10 mg/dL (Negative); Leukocyte Negative Leu/uL (Negative); Nitrite Negative (Negative); Protein, Urine (Dipstick) 20 mg/dL (Neg-Trace); Specific Gravity, Urine 1.009 (1.002-1.036); Urobilinogen Normal mg/dL (Less than 2); pH, Urine 5.5 (5.0-9.0)
[2024-01-07] MEDS: Potassium Chloride 40 MEQ in Premix 1 BAG IVPB SCH (22:47)
[2024-01-08 03:33] LABS: Actual Bicarbonate (HCO3a) 27.4 mEq/L (22-28); CO2 Tension 36.5 mmHg (35.0-45.0); Calcium, Ionized (arterial) 1.16 mmol/L (1.12-1.30); Hematocrit-ABG 27 % (36.0-47.0); Hemoglobin (Hb) 9.3 g/dL (12.0-16.0); O2 Tension (PaO2), arterial 112.8 mmHg (80.0-100.0); pH, Arterial 7.494 (7.35-7.45)
[2024-01-08 03:34] LABS: Puncture Site R ALINE
[2024-01-08 03:35] LABS: ALV-art Gradient 55.475 mmHg (0-20)
[2024-01-08 04:41] LABS: Actual Bicarbonate (HCO3a) 26.9 mEq/L (22-28); Base Excess (BEa) 3.2 mEq/L (-2.0 to +3.0); CO2 Tension 37.1 mmHg (35.0-45.0); Calcium, Ionized (arterial) 1.18 mmol/L (1.12-1.30); Carboxyhemoglobin (COHb) 0.3 gm% (0.0-3.0); Hematocrit-ABG 27 % (36.0-47.0); Hemoglobin (Hb) 9.3 g/dL (12.0-16.0); O2 Tension (PaO2), arterial 376.6 mmHg (80.0-100.0); pH, Arterial 7.478 (7.35-7.45)
[2024-01-08 04:42] LABS: Puncture Site R ALINE
[2024-01-08 04:43] LABS: ALV-art Gradient 290.025 mmHg (0-20)
[2024-01-08] MEDS: Vasopressin In 0.9 % NaCl 40 UNIT in Premix 1 BAG IV SCH (05:10)
[2024-01-08] MEDS: Potassium Chloride 20 MEQ in Premix 1 BAG IVPB SCH ×3 (05:16→12:37)
[2024-01-08 06:01] LABS: #Basophils Less than 0.03 10x3/uL (0.0-0.2); #Eosinophils Less than 0.03 10x3/uL (0.0-0.7); %Lymphocytes 8.7 % (21.0-51.0); %Monocytes 6.4 % (0.0-10.0); %Neutrophils 83.2 % (42.0-75.0); Hematocrit 20.2 % (36.0-47.0); Hemoglobin 6.6 g/dL (12.0-16.0); Mean Corpuscular HGB CONC 32.7 g/dL (32.0-36.0); Mean Corpuscular Hemoglobin 29.9 pg (27.0-31.0); Mean Corpuscular Volume 91.4 fL (78.0-98.0); Mean Platelet Volume 11.7 fL (7.4-10.4); Platelet Count 165 10x3/uL (130-400); RBC Distribution Width 15.1 % (11.5-14.5); Red Blood Cell (RBC) Count 2.21 mill/uL (4.20-5.40)
[2024-01-08 06:16] LABS: INR-International Normal Ratio 1.5; PTT 29.9 sec (22.9-36.1)
[2024-01-08 06:48] LABS: Bilirubin Negative (Negative); Blood, Urine 1+ (Negative); Clarity Clear (Clear); Glucose, Urine (Dipstick) Normal (Negative); Ketone, Urine 40 mg/dL (Negative); Leukocyte Negative Leu/uL (Negative); Nitrite Negative (Negative); Protein, Urine (Dipstick) 20 mg/dL (Neg-Trace); Specific Gravity, Urine 1.019 (1.002-1.036); Urobilinogen Normal mg/dL (Less than 2)
[2024-01-08 07:02] LABS: Lactic Acid 0.71 mmol/L (0.5-2.2)
[2024-01-08 07:15] LABS: ALT (SGPT) 15 U/L (8-55); AST (SGOT) 46 U/L (5-34); Albumin 3.6 g/dL (3.5-5.0); Alkaline Phosphatase 23 U/L (40-110); Anion Gap 11 mmol/L (10-20); BUN (Urea Nitrogen) 8 mg/dL (7.0-18.7); Bilirubin, Direct 0.1 mg/dL (0.1-0.3); Bilirubin, Total 0.3 mg/dL (0.2-1.2); Calc. Creatinine Clearance 120 mL/min (70-130); Calcium 6.8 mg/dL (7.8-10.44); Carbon Dioxide 19 mmol/L (22-29); Chloride 130 mmol/L (98-107); Estimated GFR 132; Globulin 1.2 g/dL (2.4-3.5); Glucose 83 mg/dL (70-105); Magnesium 2.2 mg/dL (1.6-2.6); Phosphorus 2.1 mg/dL (2.3-4.7); Potassium 2.1 mmol/L (3.5-5.1); Protein, Total 4.8 g/dL (6.0-8.3); Sodium 158 mmol/L (136-145)
[2024-01-08 07:57] LABS: Amylase 19 U/L (25-125); Lipase 13 U/L (8-78)
[2024-01-08] MEDS: 1/2 NS w/Potassium 20 mEq 1,000 ML IV SCH (09:21)
[2024-01-08 11:21] LABS: #Basophils Less than 0.03 10x3/uL (0.0-0.2); #Eosinophils Less than 0.03 10x3/uL (0.0-0.7); %Basophils 0.2 % (0.0-1.0); %Lymphocytes 8.6 % (21.0-51.0); %Monocytes 6.4 % (0.0-10.0); %Neutrophils 82.6 % (42.0-75.0); Hematocrit 26.6 % (36.0-47.0); Hemoglobin 8.7 g/dL (12.0-16.0); Mean Corpuscular HGB CONC 32.7 g/dL (32.0-36.0); Mean Corpuscular Hemoglobin 30.2 pg (27.0-31.0); Mean Corpuscular Volume 92.4 fL (78.0-98.0); Mean Platelet Volume 10.7 fL (7.4-10.4); Platelet Count 170 10x3/uL (130-400); RBC Distribution Width 14.9 % (11.5-14.5); Red Blood Cell (RBC) Count 2.88 mill/uL (4.20-5.40)
[2024-01-08 11:25] LABS: Actual Bicarbonate (HCO3a) 27.4 mEq/L (22-28); Base Excess (BEa) 3.9 mEq/L (-2.0 to +3.0); CO2 Tension 36.6 mmHg (35.0-45.0); Calcium, Ionized (arterial) 1.13 mmol/L (1.12-1.30); Carboxyhemoglobin (COHb) 0.3 gm% (0.0-3.0); Hematocrit-ABG 26 % (36.0-47.0); O2 Tension (PaO2), arterial 309.3 mmHg (80.0-100.0); Potassium - ABG Lab 2.85 mmol/L (3.70-5.30); pH, Arterial 7.492 (7.35-7.45)
[2024-01-08 11:27] LABS: Puncture Site Arterial Line
[2024-01-08 11:34] LABS: Lactic Acid 0.83 mmol/L (0.5-2.2)
[2024-01-08 11:38] LABS: INR-International Normal Ratio 1.2; PTT 29.4 sec (22.9-36.1); Prothrombin Time 15.5 sec (12.0-14.7)
[2024-01-08 11:46] LABS: Magnesium 3.1 mg/dL (1.6-2.6); Phosphorus 3.3 mg/dL (2.3-4.7)
[2024-01-08 11:57] LABS: ALT (SGPT) 22 U/L (8-55); AST (SGOT) 60 U/L (5-34); Alkaline Phosphatase 39 U/L (40-110); Anion Gap 14 mmol/L (10-20); BUN (Urea Nitrogen) 12 mg/dL (7.0-18.7); Bilirubin, Direct 0.2 mg/dL (0.1-0.3); Bilirubin, Total 0.5 mg/dL (0.2-1.2); Calc. Creatinine Clearance 91 mL/min (70-130); Calcium 9.8 mg/dL (7.8-10.44); Carbon Dioxide 29 mmol/L (22-29); Chloride 118 mmol/L (98-107); Estimated GFR 123; Globulin 1.8 g/dL (2.4-3.5); Glucose 121 mg/dL (70-105); Lipase 21 U/L (8-78); Protein, Total 6.8 g/dL (6.0-8.3); Sodium 158 mmol/L (136-145)
[2024-01-08] MEDS: Potassium Chloride 20 MEQ TAB PO SCH (12:37)
[2024-01-08 18:13] LABS: Actual Bicarbonate (HCO3a) 28.4 mEq/L (22-28); Base Excess (BEa) 5.8 mEq/L (-2.0 to +3.0); CO2 Tension 34.1 mmHg (35.0-45.0); Calcium, Ionized (arterial) 1.16 mmol/L (1.12-1.30); Carboxyhemoglobin (COHb) 0.3 gm% (0.0-3.0); Hematocrit-ABG 30 % (36.0-47.0); Hemoglobin (Hb) 10.1 g/dL (12.0-16.0); O2 Tension (PaO2), arterial 461.3 mmHg (80.0-100.0); pH, Arterial 7.539 (7.35-7.45)
[2024-01-08 18:15] LABS: ALV-art Gradient -290.025 mmHg (0-20); Puncture Site R ALINE
[2024-01-08 18:21] LABS: #Basophils Less than 0.03 10x3/uL (0.0-0.2); #Eosinophils Less than 0.03 10x3/uL (0.0-0.7); %Basophils 0.1 % (0.0-1.0); %Lymphocytes 7.7 % (21.0-51.0); %Monocytes 6.3 % (0.0-10.0); %Neutrophils 82.7 % (42.0-75.0); Hematocrit 28.8 % (36.0-47.0); Hemoglobin 9.4 g/dL (12.0-16.0); Mean Corpuscular HGB CONC 32.6 g/dL (32.0-36.0); Mean Platelet Volume 10.7 fL (7.4-10.4); Platelet Count 192 10x3/uL (130-400); RBC Distribution Width 14.9 % (11.5-14.5); Red Blood Cell (RBC) Count 3.13 mill/uL (4.20-5.40)
[2024-01-08 18:35] LABS: INR-International Normal Ratio 1.3
[2024-01-08 18:46] LABS: Lactic Acid 0.72 mmol/L (0.5-2.2)
[2024-01-08 18:50] LABS: Bilirubin Small (Negative); Blood, Urine Small (Negative); Glucose, Urine (Dipstick) Negative (Negative); Ketone, Urine 15 mg/dL (Negative); Leukocyte Negative (Negative); Nitrite Negative (Negative); Protein, Urine (Dipstick) 30 mg/dL (Neg-Trace); Urobilinogen 0.2 mg/dL (Less than 2); pH, Urine 7.5 (5.0-9.0)
[2024-01-08 18:51] LABS: Clarity Clear (Clear)
[2024-01-08 19:03] LABS: ALT (SGPT) 22 U/L (8-55); AST (SGOT) 50 U/L (5-34); Albumin 5.1 g/dL (3.5-5.0); Alkaline Phosphatase 46 U/L (40-110); Anion Gap 14 mmol/L (10-20); BUN (Urea Nitrogen) 14 mg/dL (7.0-18.7); Bilirubin, Direct 0.2 mg/dL (0.1-0.3); Bilirubin, Total 0.6 mg/dL (0.2-1.2); Calc. Creatinine Clearance 90 mL/min (70-130); Calcium 10.1 mg/dL (7.8-10.44); Carbon Dioxide 28 mmol/L (22-29); Chloride 118 mmol/L (98-107); Estimated GFR 121; Globulin 1.8 g/dL (2.4-3.5); Glucose 120 mg/dL (70-105); Magnesium 3.1 mg/dL (1.6-2.6); Phosphorus 2.7 mg/dL (2.3-4.7); Potassium 3.2 mmol/L (3.5-5.1); Protein, Total 6.9 g/dL (6.0-8.3); Sodium 157 mmol/L (136-145)
[2024-01-09 00:57] LABS: Anion Gap 14 mmol/L (10-20); BUN (Urea Nitrogen) 13 mg/dL (7.0-18.7); Calc. Creatinine Clearance 97 mL/min (70-130); Calcium 9.9 mg/dL (7.8-10.44); Carbon Dioxide 28 mmol/L (22-29); Chloride 120 mmol/L (98-107); Estimated GFR 125; Glucose 128 mg/dL (70-105); Sodium 159 mmol/L (136-145)
[2024-01-09] MEDS: Dextrose 5% in Water 1,000 ML IV SCH (01:26)
[2024-01-09 07:41] LABS: #Basophils 0.03 10x3/uL (0.0-0.2); #Eosinophils Less than 0.03 10x3/uL (0.0-0.7); %Basophils 0.2 % (0.0-1.0); %Lymphocytes 5.9 % (21.0-51.0); %Neutrophils 86.3 % (42.0-75.0); Hematocrit 28.5 % (36.0-47.0); Hemoglobin 9.3 g/dL (12.0-16.0); Mean Corpuscular HGB CONC 32.6 g/dL (32.0-36.0); Mean Corpuscular Hemoglobin 29.3 pg (27.0-31.0); Mean Corpuscular Volume 89.9 fL (78.0-98.0); Platelet Count 228 10x3/uL (130-400); Red Blood Cell (RBC) Count 3.17 mill/uL (4.20-5.40)
[2024-01-09 07:50] LABS: INR-International Normal Ratio 1.2; Prothrombin Time 14.8 sec (12.0-14.7)
[2024-01-09 07:54] LABS: Lactic Acid 1.75 mmol/L (0.5-2.2)
[2024-01-09 08:09] LABS: ALT (SGPT) 24 U/L (8-55); AST (SGOT) 40 U/L (5-34); Albumin 4.6 g/dL (3.5-5.0); Alkaline Phosphatase 52 U/L (40-110); Anion Gap 13 mmol/L (10-20); BUN (Urea Nitrogen) 17 mg/dL (7.0-18.7); Bilirubin, Direct 0.3 mg/dL (0.1-0.3); Bilirubin, Total 0.8 mg/dL (0.2-1.2); Calc. Creatinine Clearance 103 mL/min (70-130); Calcium 9.9 mg/dL (7.8-10.44); Carbon Dioxide 27 mmol/L (22-29); Chloride 116 mmol/L (98-107); Estimated GFR 126; Globulin 2.1 g/dL (2.4-3.5); Glucose 148 mg/dL (70-105); Magnesium 2.8 mg/dL (1.6-2.6); Potassium 2.9 mmol/L (3.5-5.1); Protein, Total 6.7 g/dL (6.0-8.3); Sodium 153 mmol/L (136-145)
[2024-01-09 08:28] LABS: PTT 22.4 sec (22.9-36.1)
[2024-01-09 08:39] LABS: Bilirubin Negative (Negative); Blood, Urine Small (Negative); Glucose, Urine (Dipstick) Negative (Negative); Ketone, Urine Trace mg/dL (Negative); Leukocyte Negative (Negative); Nitrite Negative (Negative); Protein, Urine (Dipstick) 100 mg/dL (Neg-Trace); Specific Gravity, Urine 1.025 (1.005-1.030); Urobilinogen 0.2 mg/dL (Less than 2); pH, Urine 6.5 (5.0-9.0)
[2024-01-09 08:45] LABS: Clarity Clear (Clear)
[2024-01-09 09:55] VITALS: BP 159/125
[2024-01-09 10:49] LABS: Potassium - ABG Lab 2.67 mmol/L (3.70-5.30)
[2024-01-09] MEDS ORDERED: Potassium Chloride 20 MEQ (100 mL) BAG ONE (11:42)
[2024-01-09] MEDS ORDERED: Albumin 5% 500 ML ONE (11:42)
== END 2024-01-09 12:00 | disposition expired | DRG 208 ==
LOC: SDC 00:15 → CCU 00:23 → EDSTATUS 15:21 → CCU 01-09 11:12
PROVIDERS: ADMIT Internal Medicine; ATTEND Internal Medicine
PROC: 5A1945Z Respiratory Ventilation, 24-96 Consecutive Hours (ICD-10-PCS; principal; 2024-01-06)
PROC: 0BH18EZ Insertion of Endotracheal Airway into Trachea, Via Natural or Artificial Opening Endoscopic (ICD-10-PCS; 2024-01-06)
PROC: 0B9J8ZZ Drainage of Left Lower Lung Lobe, Via Natural or Artificial Opening Endoscopic (ICD-10-PCS; 2024-01-06)
PROC: 0B958ZZ Drainage of Right Middle Lobe Bronchus, Via Natural or Artificial Opening Endoscopic (ICD-10-PCS; 2024-01-06)
PROC: 30233J1 Transfusion of Nonautologous Serum Albumin into Peripheral Vein, Percutaneous Approach (ICD-10-PCS; 2024-01-06)
PROC: 3E03329 Introduction of Other Anti-infective into Peripheral Vein, Percutaneous Approach (ICD-10-PCS; 2024-01-06)
PROC: 0BJ08ZZ Inspection of Tracheobronchial Tree, Via Natural or Artificial Opening Endoscopic (ICD-10-PCS; 2024-01-07)
PROC: 0B9D8ZZ Drainage of Right Middle Lung Lobe, Via Natural or Artificial Opening Endoscopic (ICD-10-PCS; 2024-01-07)
PROC: 4A133R1 Monitoring of Arterial Saturation, Peripheral, Percutaneous Approach (ICD-10-PCS; 2024-01-07)
PROC: 03HY32Z Insertion of Monitoring Device into Upper Artery, Percutaneous Approach (ICD-10-PCS; 2024-01-08)
PROC: 4A133B1 Monitoring of Arterial Pressure, Peripheral, Percutaneous Approach (ICD-10-PCS; 2024-01-08)
PROC: 4A133J1 Monitoring of Arterial Pulse, Peripheral, Percutaneous Approach (ICD-10-PCS; 2024-01-08)
PROC: 0B9F8ZX Drainage of Right Lower Lung Lobe, Via Natural or Artificial Opening Endoscopic, Diagnostic (ICD-10-PCS; 2024-01-08)
PROC: 0B9C8ZX Drainage of Right Upper Lung Lobe, Via Natural or Artificial Opening Endoscopic, Diagnostic (ICD-10-PCS; 2024-01-08)
PROC: 0B9D8ZX Drainage of Right Middle Lung Lobe, Via Natural or Artificial Opening Endoscopic, Diagnostic (ICD-10-PCS; 2024-01-08)
PROC: 3E033XZ Introduction of Vasopressor into Peripheral Vein, Percutaneous Approach (ICD-10-PCS; 2024-01-08)
DX: J96.01 Acute respiratory failure with hypoxia (principal); G93.6 Cerebral edema; G93.1 Anoxic brain damage, not elsewhere classified; E27.1 Primary adrenocortical insufficiency; J45.901 Unspecified asthma with (acute) exacerbation; E87.20 Acidosis, unspecified; E87.0 Hyperosmolality and hypernatremia; R00.1 Bradycardia, unspecified; E03.9 Hypothyroidism, unspecified; I46.9 Cardiac arrest, cause unspecified; R57.8 Other shock; R56.9 Unspecified convulsions; E87.6 Hypokalemia
CPT/HCPCS: 36415; 71045; 71270; 74178; 80053; 81003; 82150; 82248; 82805; 83036; 83605; 83690; 83735; 84100; 85025; 85379; 85384; 85610; 85730; 87205; 87633; 93005; 93010; 93306; 94002; 94003; 94640; A4649; C1713; J1720; J2060; J2543; J3480; J7050; J7070; J7620; P9045; P9047; Q9967